=== PATIENT | female | born 1960 | race Caucasian/White ===

== ENCOUNTER 2017-12-08 12:58 | Emergency (ER) | payer OTHER ==
[~2017-12-08] VITALS: Ht 162.6 cm; Wt 95.3 kg
[2017-12-08] MEDS ORDERED: ALDACTONE25 MG PO (13:14)
[2017-12-08] MEDS ORDERED: GLUCOSAMINE HC500 MG PO (13:15)
[2017-12-08] MEDS ORDERED: TOPROL XL100 MG PO (13:15)
[2017-12-08] MEDS ORDERED: NEURONTIN 300M300 M2 PO (13:15)
[2017-12-08] MEDS ORDERED: NORTRIPTYLINE H10 M1 PO (13:15)
[2017-12-08] MEDS ORDERED: SIMVASTATIN40 MG PO (13:15)
[2017-12-08 14:06] VITALS: BP 127/78
== END 2017-12-08 14:07 | disposition home or self-care (01) ==
LOC: M.ERS 12:58
DX: S39.82XA Other specified injuries of lower back, initial encounter (principal); F32.9 Major depressive disorder, single episode, unspecified; I10 Essential (primary) hypertension; E78.00 Pure hypercholesterolemia, unspecified; W10.8XXA Fall (on) (from) other stairs and steps, initial encounter; Y93.89 Activity, other specified; Y92.89 Other specified places as the place of occurrence of the external cause; Y99.8 Other external cause status